=== PATIENT | male | born 1950 | race Caucasian/White ===

== ENCOUNTER → 2022-10-15 09:49 | Outpatient (BNVA) | payer MEDICARE, SELFPAY | PROVIDERS: PCP Physician Assistant; Visit Provider Internal Medicine Rheumatology | DX: M19.012 Primary osteoarthritis, left shoulder (principal); M19.041 Primary osteoarthritis, right hand; M19.042 Primary osteoarthritis, left hand; M35.3 Polymyalgia rheumatica | CPT/HCPCS: 36415; 85652; 86140; 99202 ==

== ENCOUNTER 2022-10-15 10:58 | Outpatient (REF) | payer MEDICARE, SELFPAY ==
[2022-10-15 14:32] LABS: Erythrocyte Sedimentation Rate 10 MM/HR (0-15)
== END 2022-10-15 10:59 | disposition home or self-care (01) ==
LOC: HO.10HDL 10:58
PROVIDERS: Visit Provider Internal Medicine Rheumatology
DX: Z13.89 Encounter for screening for other disorder (principal)
CPT/HCPCS: 36415; 85652; 86140